=== PATIENT | female | born 1960 | race Caucasian/White ===

== ENCOUNTER 2016-11-02 11:08 | Emergency (ER) | payer OTHER ==
[2016-11-02 11:22] VITALS: BP 112/69
[2016-11-02] MEDS ORDERED: methylPREDNISolone Sodium Succinate 125 MG/2 ML SDV IVPUSH ONE (11:33)
[2016-11-02] MEDS ORDERED: hydrOXYzine HCl 50 MG/ML SDV IM ONE (12:20)
[2016-11-02] MEDS ORDERED: methylPREDNISolone Sodium Succinate 125 MG/2 ML SDV ONE (12:30)
[2016-11-02] MEDS ORDERED: methylPREDNISolone Sodium Succinate 125 MG/2 ML SDV IM ONE (12:35)
[2016-11-02] MEDS ORDERED: Ondansetron 4 MG/2 ML SDV IVPUSH ONE (12:40)
[2016-11-02] MEDS ORDERED: HYDROmorphone 1 MG/ML Syringe IVPUSH ONE (12:40)
[2016-11-02 13:03] LABS: CHLORIDE,CL 102 mmol/L (98-115); SODIUM,NA 141 mmol/L (136-145)
[2016-11-02] MEDS ORDERED: Acetaminophen 500 MG Tab PO ONE (13:10)
[2016-11-02] MEDS ORDERED: Azithromycin 250 MG Tab PO ONE (14:04)
--- NOTE | 2016-11-02 14:26 | EDM.PDOC ---
ED HPI GENERAL MEDICAL PROBLEM - General Chief Complaint: Allergic Reaction Stated Complaint: HIVES Time Seen by Provider: 11/02/16 11:30 Source of Information: Reports: Patient History Limitations: Reports: No Limitations - History of Present Illness INITIAL COMMENTS - FREE TEXT/NARRATIVE: 56-year-old female reports on Thursday night she felt like she had a bug bite underneath her chin. The next morning when she woke up she noticed she broke out in hives over her abdomen and underneath her breast. She reports some itching to the ears around her eyes. She denies any difficulty breathing any angioedema or throat tightness or swelling. She has been feeling mildly warm and has been getting some chills,she denies significant breathing difficulties but she continues with a nebulizer treatments and also has a rescue inhaler for her asthma. A pack-a-day smoker for 30 years. She does have a history of a bronchitis and gets acute pneumonia easily. She denies any nausea or vomiting no abdominal pain. No diarrhea. Onset: Gradual Duration: Day(s):, Getting Worse Location: Reports: Chest, Abdomen Severity: Moderate Improves with: Reports: None Worsens with: Reports: None Associated Symptoms: Reports: Cough, Fever/Chills, Rash, Shortness of Breath. Denies: Nausea/Vomiting Treatments [employer]EF[employer] ASSIST[employer]: Reports: Acetaminophen, Breathing Treatments - Related Data Allergies Allergy/AdvReac Type Severity Reaction Status Date / Time Sulfa (Sulfonamide Allergy Rash Verified 11/02/16 11:21 Antibiotics) Home Meds: Home Meds Albuterol Sulfate [Albuterol Sulfate] 3 ml INH BID PRN 04/01/13 [History] Levothyroxine Sodium [Synthroid] 1 tab PO DAILY 11/02/16 [History] Past Medical History Cardiovascular History: Reports: Heart Murmur Respiratory History: Reports: Asthma Gastrointestinal History: Reports: Other (See Below) Other Gastrointestinal History: thinks she might have an ulcer. Genitourinary History: Reports: None Neurological History: Reports: Headaches, Chronic Endocrine/Metabolic History: Reports: Hypothyroidism Hematologic History: Reports: Blood Transfusion(s) - Infectious Disease History Infectious Disease History: Reports: Chicken Pox, Measles, Mumps - Past Surgical History Head Surgeries/Procedures: Reports: None Cardiovascular Surgical History: Reports: None Respiratory Surgical History: Reports: None GI Surgical History: Reports: Appendectomy, Colonoscopy Female Surgical History: Reports: Hysterectomy Endocrine Surgical History: Reports: None Neurological Surgical History: Reports: None Social & Family History - Tobacco Use Smoking Status *Q: Current Every Day Smoker Years of Tobacco use: 30 Packs/Tins Daily: 1 Second Hand Smoke Exposure: Yes - Caffeine Use Caffeine Use: Reports: Coffee, Soda - Alcohol Use Days Per Week of Alcohol Use: 0 - Recreational Drug Use Recreational Drug Use: No Drug Use in Last 12 Months: No - Living Situation & Occupation Living situation: Reports: Single, with Significant Other Occupation: Employed ED ROS ALLERGIC REACTION - Review of Systems Review Of Systems: See Below Constitutional: Reports: Fever, Chills HEENT: Denies: Ear Pain, Throat Pain, Vertigo Respiratory: Reports: Wheezing, Cough. Denies: Sputum Cardiovascular: Reports: No Symptoms Endocrine: Reports: No Symptoms GI/Abdominal: Reports: No Symptoms : Reports: No Symptoms Musculoskeletal: Reports: No Symptoms Skin: Reports: Pruritis, Rash, Other (hives) Neurological: Reports: No Symptoms Psychiatric: Reports: No Symptoms Hematologic/Lymphatic: Reports: No Symptoms Immunologic: Reports: No Symptoms ED EXAM GENERAL NO PERIP PULSE - Physical Exam Exam: See Below Exam Limited By: No Limitations General Appearance: Alert, WD/WN, No Apparent Distress Eye Exam: Bilateral Eye: EOMI, PERRL Ears: Normal External Exam, Normal TMs Nose: Normal Inspection Throat/Mouth: Normal Inspection, Normal Oropharynx, Normal Voice, No Airway Compromise Head: Atraumatic, Normocephalic Neck: Normal Inspection, Supple, Non-Tender, Full Range of Motion Respiratory/Chest: No Respiratory Distress, No Accessory Muscle Use, Chest Non- Tender, Decreased Breath Sounds. No: Crackles Cardiovascular: Normal Peripheral Pulses, Regular Rate, Rhythm GI/Abdominal: Normal Bowel Sounds, Soft, No Abnormal Bruit Back Exam: Normal Inspection, Full Range of Motion Extremities: Normal Inspection, No Pedal Edema Neurological: Alert, Oriented, Normal Gait Psychiatric: Normal Affect, Normal Mood Skin Exam: Warm, Dry, Intact, Rash, Other (Hives abdomen, under breast) Lymphatic: No Adenopathy Course - Vital Signs Last Recorded V/S: Last Vital Signs Temp 100.5 F 11/02/16 13:47 Pulse 91 11/02/16 11:17 Resp 16 11/02/16 11:17 BP 112/69 11/02/16 11:17 Pulse Ox 96 11/02/16 11:17 - Orders/Labs/Meds Orders: Active Orders 24 hr Category Date Time Status CXR [Chest 2V] [CR] Stat Exams 11/02/16 13:35 Ordered Ranitidine [Zantac] Med 11/02/16 12:30 Active 150 mg PO DAILY Medication Orders Ranitidine HCl (Zantac) 150 mg PO DAILY NEY Last Admin: 11/02/16 12:36 Dose: 150 mg Labs: Laboratory Tests 11/02/16 11/02/16 Range/Units 12:05 12:05 WBC 14.4 H (5.0-10.0) 10^3/uL RBC 5.18 (3.80-5.50) 10^6/uL Hgb 15.9 (12.0-16.0) g/dL Hct 47.6 H (37.0-47.0) % MCV 91.8 (82.0-92.0) fL MCH 30.8 (27.0-31.0) pg MCHC 33.5 (32.0-36.0) g/dL RDW 12.7 (11.5-14.5) % Plt Count 339 H (150-300) 10^3/uL MPV 7.7 (7.4-10.4) fL Neut % (Auto) 84.1 H (50.0-70.0) % Lymph % (Auto) 13.0 L (20.0-40.0) % Greenlee % (Auto) 2.6 (2.0-8.0) % Eos % (Auto) 0.3 L (1.0-3.0) % Baso % (Auto) 0.0 (0.0-1.0) % Neut # (Auto) 12.1 H (2.5-7.0) 10^3/uL Lymph # (Auto) 1.9 (1.0-4.0) 10^3/uL Greenlee # (Auto) 0.4 (0.1-0.8) 10^3/uL Eos # (Auto) 0.0 L (0.1-0.3) 10^3/uL Baso # (Auto) 0.0 (0.0-0.1) 10^3/uL Sodium 141 (136-145) mmol/L Potassium 4.5 (3.3-5.3) mmol/L Chloride 102 (98-115) mmol/L Carbon Dioxide 27.5 (21.0-32.0) mmol/L BUN 9 (6-25) mg/dL Creatinine 0.88 (0.51-1.17) mg/dL Est Cr Clr Drug Dosing 57.13 mL/min Estimated GFR (MDRD) > 60 mL/min Glucose 90 (70-110) mg/dL Calcium 9.3 (8.7-10.3) mg/dL Meds: Medications Generic Name Dose Route Start Last Admin Trade Name Freq PRN Reason Stop Dose Admin Ranitidine HCl 150 mg 11/02/16 12:30 11/02/16 12:36 Zantac PO 150 mg DAILY NEY Administration Discontinued Medications Generic Name Dose Route Start Last Admin Trade Name Freq PRN Reason Stop Dose Admin Acetaminophen 1,000 mg 11/02/16 13:10 11/02/16 13:17 Tylenol Extra Strength PO 11/02/16 13:11 1,000 mg ONETIME ONE Administration Azithromycin 500 mg 11/02/16 14:04 11/02/16 14:07 Zithromax PO 11/02/16 14:05 500 mg ONETIME ONE Administration Hydroxyzine HCl 50 mg 11/02/16 12:20 11/02/16 12:36 Vistaril IM 11/02/16 12:21 50 mg ONETIME ONE Administration Methylprednisolone Sodium Succinate 125 mg 11/02/16 11:33 11/02/16 12:35 Solu-Medrol IVPUSH 11/02/16 11:34 Not Given ONETIME ONE Methylprednisolone Sodium Succinate Confirm 11/02/16 12:30 11/02/16 12:36 Solu-Medrol Administered 11/02/16 12:31 Not Given Dose 125 mg .ROUTE .STK-MED ONE Methylprednisolone Sodium Succinate 125 mg 11/02/16 12:35 11/02/16 12:37 Solu-Medrol IM 11/02/16 12:36 125 mg ONETIME ONE Administration - Radiology Interpretation Free Text/Narrative:: CXR PA/LAT Impression: Normal Departure - Departure Time of Disposition: 14:30 Disposition: Home, Self-Care 01 Condition: Fair Clinical Impression: Hives of unknown origin, Bronchitis - Discharge Information Instructions: Hives, Pneumonitis Referrals: Carmen Verdugo PA-C [Primary Care Provider] - Forms: ED Department Discharge Additional Instructions: 1. Azithromycin 500 mg 1 by mouth daily for 5 days. 2. Prednisone 40 mg daily for 5 days 3. Hydroxyzine 25mg by mouth every 6 hours as needed for itching. 4. Continue with home medications including rescue inhaler and albuterol treatments as needed. 5. Follow-up your primary care in 48 hours if symptoms are not improving or sooner if you feel you're symptoms are worsening. 6. Rest and stay at home. 7. Avoid smoking. 8. Increased shortness of breath, swelling of the throat, lips, face, eyes patient is return to the emergency room immediately. - My Orders Last 24 Hours: My Active Orders 11/02/16 12:30 Ranitidine [Zantac] 150 mg PO DAILY 11/02/16 13:35 CXR [Chest 2V] [CR] Stat - Assessment/Plan Last 24 Hours: My Active Orders 11/02/16 12:30 Ranitidine [Zantac] 150 mg PO DAILY 11/02/16 13:35 CXR [Chest 2V] [CR] Stat Assessment:: 1. Hives 2. Acute exacerbation of bronchitis, with elevated white count and shift. Will start the patient on azithromycin for possible early pneumonia. Patient has history of asthma with rescue inhalers and nebulizer treatments, and is a smoker , and has 2 grandchildren who are been recently diagnosed with pneumonia at home. Plan: 1. Azithromycin 500 mg 1 by mouth daily for 5 days. 2. Prednisone 40 mg daily for 5 days 3. Hydroxyzine 25mg by mouth every 6 hours as needed for itching. 4. Continue with home medications including rescue inhaler and albuterol treatments as needed. 5. Follow-up your primary care in 48 hours if symptoms are not improving or sooner if you feel you're symptoms are worsening. 6. Rest and stay at home. 7. Avoid smoking. 8. Increased shortness of breath, swelling of the throat, lips, face, eyes patient is return to the emergency room immediately.
== END 2016-11-02 14:30 | disposition home or self-care (01) ==
LOC: KA.ED 11:08
DX: J40 Bronchitis, not specified as acute or chronic (principal); L50.9 Urticaria, unspecified; Z88.2 Allergy status to sulfonamides; J45.909 Unspecified asthma, uncomplicated; E03.9 Hypothyroidism, unspecified; F17.210 Nicotine dependence, cigarettes, uncomplicated
CPT/HCPCS: 36415; 71020; 80048; 85025; 96372; 99285; A9270; J2930; J3410

== ENCOUNTER 2021-10-13 16:32 | Emergency (ER) | payer OTHER ==
[2021-10-13 16:48] VITALS: BP 151/63; PULSE 83
== END 2021-10-13 18:13 | disposition home or self-care (01) ==
LOC: KA.ED 16:32
DX: S93.602A Unspecified sprain of left foot, initial encounter (principal); S63.501A Unspecified sprain of right wrist, initial encounter; Z79.899 Other long term (current) drug therapy; Z88.2 Allergy status to sulfonamides; W18.30XA Fall on same level, unspecified, initial encounter
CPT/HCPCS: 73110-RT; 73630-LT; 99283; 99283-25